=== PATIENT | female | born 1960 | race Caucasian/White ===

== ENCOUNTER 2019-11-15 09:30 | Day surgery (SDC) | payer BC ==
[~2019-11-15] VITALS: Ht 162.6 cm; Wt 73.9 kg
[2019-11-15] MEDS ORDERED: LIALDA1.2 GM PO (10:22)
[2019-11-15] MEDS ORDERED: EFFEXOR XR150 MG PO (10:23)
[2019-11-15] MEDS ORDERED: Clonidine HCl0.1 MG PO (10:23)
[2019-11-15] MEDS ORDERED: PRAV20 PO (10:24)
[2019-11-15] MEDS ORDERED: DIVA500EC PO (10:24)
[2019-11-15] MEDS ORDERED: TRAZ50 PO (10:24)
[2019-11-15] MEDS ORDERED: ZYRTEC10 M2 PO (10:25)
[2019-11-15] MEDS ORDERED: DOCU100 PO (10:25)
[2019-11-15] MEDS ORDERED: SENNA LAXATIVE8.6 MG PO (10:25)
[2019-11-15] MEDS ORDERED: PRED5 (10:25)
[2019-11-15] MEDS ORDERED: CENTRUM SILVER1 EAC9 PO (10:25)
[2019-11-15] MEDS ORDERED: FISH OIL 1,001000 M1 PO (10:26)
[2019-11-15] MEDS ORDERED: METAMUCIL PLUS1 EACH PO (10:26)
[2019-11-15] MEDS ORDERED: VITAMIN D310 MC4 PO (10:26)
[2019-11-15] MEDS ORDERED: Aspirin EC81 MG PO (10:26)
[2019-11-15] MEDS ORDERED: HARD NAILS2500 MCG PO (10:27)
== END 2019-11-15 12:05 | disposition home or self-care (01) ==
LOC: ORSCSDS 09:30
PROVIDERS: Student in an Organized Health Care Education/Training Program
PROC: 0DBP8ZX Excision of Rectum, Via Natural or Artificial Opening Endoscopic, Diagnostic (ICD-10-PCS; principal; 2019-11-15 10:00)
PROC: 0DBK8ZX Excision of Ascending Colon, Via Natural or Artificial Opening Endoscopic, Diagnostic (ICD-10-PCS; principal; 2019-11-15 10:00)
PROC: 0DBF8ZX Excision of Right Large Intestine, Via Natural or Artificial Opening Endoscopic, Diagnostic (ICD-10-PCS; principal; 2019-11-15 10:00)
PROC: 0DBG8ZX Excision of Left Large Intestine, Via Natural or Artificial Opening Endoscopic, Diagnostic (ICD-10-PCS; principal; 2019-11-15 10:00)
DX: K51.90 Ulcerative colitis, unspecified, without complications (principal); D12.2 Benign neoplasm of ascending colon; J44.9 Chronic obstructive pulmonary disease, unspecified; G47.33 Obstructive sleep apnea (adult) (pediatric); Z79.899 Other long term (current) drug therapy; F17.210 Nicotine dependence, cigarettes, uncomplicated; K57.30 Diverticulosis of large intestine without perforation or abscess without bleeding
CPT/HCPCS: 88305; J2405; J2704; J7120